=== PATIENT | female | born 1990 | race Caucasian/White ===

== ENCOUNTER 2023-02-18 14:11 | Emergency (ER) | payer OTHER, SELFPAY ==
--- NOTE | ~2023-02-18 | XR_ITS ---
EXAMINATION: XR forearm RT 2V DATE: 02/18/2023 15:13 INDICATION: Right forearm pain and swelling. Fall. TECHNIQUE: 2 views of right forearm were obtained. COMPARISON: None. FINDINGS: Bone alignment is normal. No fracture. Joint spaces are normal. No elbow joint effusion. IMPRESSION: 1. Normal right forearm. Reviewed, dictated and finalized at location A. IMPRESSION: 1. Normal right forearm.
[2023-02-18 14:18] VITALS: BP 131/83; PULSE 79; RESP 16; TEMP 36.6; O2SAT 100
--- NOTE | 2023-02-18 14:24 | ED.UPPEXIN ---
HPI - Extremity Injury (Upper) General Chief Complaint: Extremity Injury, Upper Stated Complaint: Rt Arm/Shoulder Pain Due to Fall Time Seen by Provider: 02/18/23 14:24 Source: patient Mode of arrival: ambulatory Limitations: no limitations History of Present Illness HPI narrative: 32-year-old female presents with complaint of right forearm pain with bruising and swelling. Patient reports that she tripped over 1 of her daughters toys on the floor and fell into entertainment system, hitting right forearm. Denies any head, no LOC. No other pain. Patient reports shooting pain up arm in to right shoulder with movement. Distal neurovascularly intact. All systems reviewed and negative except as noted above. Related Data Home Medications Medication Instructions Recorded Confirmed norethindrone 1 mg-ethinyl 1 tablet PO DAILY 02/18/23 02/18/23 estradiol 20 mcg (21)-iron 75 mg (7) tablet ([place] Fe 11/09 (28)) Allergies Allergy/AdvReac Type Severity Reaction Status Date / Time No Known Allergies Allergy Verified 02/18/23 14:30 Review of Systems Review of Systems: CONSTITUTIONAL: Denies fever, chills, or sweats. EYES: Denies visual changes, redness, or discharge. ENT: Denies rhinorrhea, congestion, sore throat, or otalgia. CARDIOVASCULAR: Denies chest pain, palpitations, or edema. RESPIRATORY: Denies cough or dyspnea. GASTROINTESTINAL: Denies abdominal pain, nausea, vomiting, or diarrhea. GENITOURINARY: Denies dysuria or hematuria. SKIN: Denies rash or itching. MUSCULOSKELETAL: Denies back pain, joint pain, or myalgia. Reports pain and bruising to right forearm. NEUROLOGIC: Denies headache, numbness, or weakness. PSYCHIATRIC: Denies anxiety or depression. All other systems reviewed are negative, except as documented in HPI. PMFSH Social History Social History Smoking status: Never smoker Alcohol intake: never Comments At time of signature, agree with nursing past medical, surgical, social and family history. There is no relevant family history pertinent to the presenting complaint. Exam Narrative: GENERAL: This is a well-nourished, well-developed patient, in no apparent distress. HEAD: normocephalic, atraumatic. EYES: PERRL. Sclera clear/white. Vision is grossly intact. EARS: External ears normal NOSE: External nose normal NECK: Neck supple, non-tender without lymphadenopathy, masses or thyromegaly. CARDIOVASCULAR: Regular rate and rhythm without murmurs, gallops, or rubs. RESPIRATORY: Clear to auscultation. Breath sounds equal bilaterally. No wheezes, rales, or rhonchi. SKIN: warm, Dry, intact with no suspicious lesions or rash, good texture and turgor. NEURO: awake, alert, and oriented to person, place and time. There were no obvious focal neurologic abnormalities. EXTREMITIES: No joint tenderness, effusion. Contusion to medial anterior aspect of right forearm. Tender on palpation. Range of motion intact to right elbow, right shoulder. Distal neurovascularly intact. Course Course Level of Care: Express Care Visit Vital Signs Vital signs: Vital Signs Temperature 36.6 C 02/18/23 14:18 Pulse Rate 79 02/18/23 14:18 Respiratory Rate 16 02/18/23 14:18 Blood Pressure 131/83 02/18/23 14:18 Pulse Oximetry 100 02/18/23 14:18 Oxygen Delivery Room Air 02/18/23 14:18 Temperature 36.6 C 02/18/23 14:18 Pulse Rate 79 02/18/23 14:18 Respiratory Rate 16 02/18/23 14:18 Blood Pressure 131/83 02/18/23 14:18 Pulse Oximetry 100 02/18/23 14:18 Oxygen Delivery Room Air 02/18/23 14:18 Review MDM - Extremity Injury (Upper) MDM Narrative Medical decision making narrative: Patient is aware of diagnosis, understands and agrees to treatment plan. Anticipatory guidance given. Patient agrees to follow-up as directed and is aware of reasons to seek care at the emergency department. Portions of this
== END 2023-02-18 15:25 | disposition home or self-care (01) ==
PROVIDERS: Emergency Provider Nurse Practitioner Family; PCP Emergency Medicine
DX: S50.11XA Contusion of right forearm, initial encounter (principal); W18.09XA Striking against other object with subsequent fall, initial encounter; F41.9 Anxiety disorder, unspecified; F32.A Depression, unspecified
CPT/HCPCS: 73090; 99213; G0463

== ENCOUNTER 2023-06-27 18:39 | Emergency (ER) | payer OTHER, SELFPAY ==
[2023-06-27 18:50] VITALS: BP 135/85; PULSE 83; RESP 18; TEMP 36.4; O2SAT 100
--- NOTE | 2023-06-27 19:01 | ED.BACK ---
HPI - Back Pain/Injury General Chief Complaint: Back Pain/Injury Stated Complaint: back pain Source: patient Mode of arrival: ambulatory Limitations: no limitations History of Present Illness HPI Narrative: 33 y/o female presented for c/o mid lower back pain radiating to left hip for about 2 days. States she has had pain to this site intermittently over the past few years after a . States she had significant pain last night and was unable to sleep. Used icyhot and Aleve without significant change. Denies injury. Denies numbness, tingling, weakness of the lower extremities, or change in gait, saddle paresthesia or loss of bowel or bladder. Related Data Home Medications Medication Instructions Recorded Confirmed norethindrone 1 mg-ethinyl 1 tablet PO DAILY 02/18/23 06/27/23 estradiol 20 mcg (21)-iron 75 mg (7) tablet ([place] Fe 11/09 (28)) Allergies Allergy/AdvReac Type Severity Reaction Status Date / Time No Known Allergies Allergy Verified 06/27/23 18:56 Review of Systems Review of Systems: CONSTITUTIONAL: Denies body aches, fever, chills EYES: Denies visual changes CARDIOVASCULAR: Denies chest pain, palpitations, or edema. RESPIRATORY: Denies cough or dyspnea. GASTROINTESTINAL: Denies abdominal pain, nausea, vomiting, or diarrhea. SKIN: Denies rash, itching, or wounds. MUSCULOSKELETAL: reports back pain NEUROLOGIC: Denies headache, numbness, tingling, or weakness. All systems reviewed & are unremarkable except as noted in HPI and below PMFSH Past Medical History Medical History (Updated 06/27/23 @ 19:26 by Florence Villavicencio APRN) Anxiety and depression RLS (restless legs syndrome) Social History Social History Smoking status: Never smoker Alcohol intake: never Lack of Transportation: No Lack of Food: Never True Current Housing: I Have Housing Concerned About Future Housing: No Difficulty Paying Gas/Electric Bills: No Difficulty Paying for Meds: No Currently Unemployed: No Education: Master's Degree or Higher Difficulty w/ Childcare or Family Care: No Comments At time of signature, I have reviewed and agree with nursing past medical, surgical, social and family history unless otherwise noted. Please see nursing chart for further information. There is no relevant family history pertinent to the presenting complaint Exam Narrative: GENERAL: Appears in pain; in no acute distress. HEAD: Normocephalic, atraumatic. EYES: conjunctivae clear NECK: Supple. full ROM CHEST: Speaks in full sentences. No respiratory distress. HEART: Regular rate and rhythm. Normal and equal peripheral pulses. MUSC: No Vertebral point tenderness. Paraspinal tenderness to L4-5 area, pain with palpation to left hip c/w radiculopathy; BLEs with normal strength and sensation, normal range of motion. No pain with movement. No open wounds, or obvious deformity; alignment normal, pulse palpable and equal bilaterally, skin warm, dry, pink. Capillary refill less than 3 seconds. Gait steady. SKIN: Warm, dry, no rash or bruising NEURO: Alert and oriented x3. Course Course Emergency Course: Patient is aware of diagnosis, understands and agrees to treatment plan. Anticipatory guidance given. Patient agrees to follow-up as directed and is aware of reasons to seek care at the emergency department. Portions of this record may have been created with voice recognition software Level of Care: Express Care Visit Vital Signs Vital signs: Vital Signs Temperature 97.6 F 06/27/23 18:50 Pulse Rate 83 06/27/23 18:50 Respiratory Rate 18 06/27/23 18:50 Blood Pressure 135/85 06/27/23 18:50 Pulse Oximetry 100 06/27/23 18:50 Oxygen Delivery Room Air 06/27/23 18:50 Temperature 97.6 F 06/27/23 18:50 Pulse Rate 83 06/27/23 18:50 Respiratory Rate 18 06/27/23 18:50 Blood Pressure 135/85 06/27/23 18:50 Pulse Oximetry
== END 2023-06-27 19:11 | disposition home or self-care (01) ==
PROVIDERS: Emergency Provider Nurse Practitioner Family; PCP Emergency Medicine
DX: M54.16 Radiculopathy, lumbar region (principal); G25.81 Restless legs syndrome
CPT/HCPCS: 99213; G0463

== ENCOUNTER 2023-10-31 10:54 | Outpatient (CLI) | payer OTHER, SELFPAY ==
--- NOTE | ~2023-10-31 | MMUS_ITS ---
EXAMINATION: MM diagnostic cira BI w jatin, US breast BI limited HISTORY: Mastodynia, possible left breast cyst, history of breast cancer in her mother at age 46 TECHNIQUE: Craniocaudal, mediolateral, and mediolateral oblique 3-D tomosynthesis images of the eduardo ts were performed and synthetic 2-D images were generated. CAD analysis was submitted and interpreted . High resolution limited bilateral breast ultrasound was performed. COMPARISON: None, baseline BREAST PARENCHYMAL COMPOSITION: There are scattered areas of fibroglandular density. FINDINGS: MAMMOGRAPHIC FINDINGS: No suspicious mass, calcification, or architectural distortion are identified in either breast to sug gest malignancy. No mammographic correlate is identified for the reported left breast pain or possibl e palpable left breast lump. An asymmetry in the far posterior third of the inner right breast on the mediolateral view disperses with spot compression. ULTRASOUND: There is no evidence of focal abnormal solid or cystic mass in the vicinity of the patient's reported left breast pain or left breast lump. No sonographic correlate is identified for the asymmetry quest ioned in the right breast. IMPRESSION: 1. No specific mammographic or sonographic correlate is identified for the patient's reported left br east pain or possible left breast lump. Further evaluation at this time should be based on clinical a ssessment. Continued follow-up physical examination is recommended. 2. Recommend routine screening mammography beginning at age 35 due to breast cancer in her mother at age 46. BI-RADS Category 1: Negative Reviewed, dictated and finalized at location A. ASSOCIATE IMPRESSION: 1. No specific mammographic or sonographic correlate is identified for the morteza ent's reported left breast pain or possible left breast lump. Further evaluatio n at this time should be based on clinical assessment. Continued follow-up phys ical examination is recommended. 2. Recommend routine screening mammography beginning at age 35 due to breast ca ncer in her mother at age 46. BI-RADS Category 1: Negative
== END 2023-10-31 10:55 | disposition home or self-care (01) ==
PROVIDERS: PCP Emergency Medicine; Visit Provider Obstetrics & Gynecology
DX: N60.02 Solitary cyst of left breast (principal)
CPT/HCPCS: 76642; 77062; 77066; G0279

== ENCOUNTER 2023-11-17 09:43 | Emergency (ER) | payer OTHER, SELFPAY ==
--- NOTE | 2023-11-17 09:50 | ED.URI ---
HPI - URI/Sore Throat General Chief Complaint: Upper Respiratory Infection Stated Complaint: sore throat Time Seen by Provider: 11/17/23 09:51 Source: patient Mode of arrival: ambulatory Limitations: no limitations History of Present Illness HPI Narrative: Mer is a 33-year-old female patient presenting to the clinic today with complaints of a sore throat x1 day. She reports no fever or chills. Does have some body aches that started this morning. MD elicited complaint: sore throat Related Data Home Medications Medication Instructions Recorded Confirmed norethindrone 1 mg-ethinyl 1 tablet PO DAILY 02/18/23 11/17/23 estradiol 20 mcg (21)-iron 75 mg (7) tablet ([place] Fe 11/09 ()) albuterol sulfate 90 mcg/actuation 1 puff inhalation PRN PRN 11/17/23 11/17/23 aerosol inhaler Shortness Of Breath Or Wheezing Allergies Allergy/AdvReac Type Severity Reaction Status Date / Time No Known Allergies Allergy Verified 11/17/23 09:49 Review of Systems Review of Systems: Pertinent positives per HPI. Patient denies any fever, chills, rash, headache, visual changes, dizziness, cough, shortness of breath, chest pain, palpitations, nausea, vomiting, diarrhea, constipation, abdominal pain, or any urinary issues. PMFSH Past Medical History Medical History Anxiety and depression RLS (restless legs syndrome) Social History Social History Smoking status: Never smoker Alcohol intake: never Lack of Transportation: No Lack of Food: Never True Current Housing: I Have Housing Concerned About Future Housing: No Difficulty Paying Gas/Electric Bills: No Difficulty Paying for Meds: No Currently Unemployed: No Education: Master's Degree or Higher Difficulty w/ Childcare or Family Care: No Comments At the time of my signature, I reviewed and agree with the nursing past medical, surgical, social, and family history. There is no relevant family history pertinent to the patient complaint. Exam Narrative: General: Well-developed, well nourished, in no apparent distress Head: Normocephalic, atraumatic Eyes: Pupils equally round and reactive to light bilaterally, EOM intact, sclera and conjunctive clear, no discharge, lids normal Ears: TMs intact and clear, ear canals clear, no drainage, grossly hearing normal. Nose: Nares patent, no discharge, no inflammation, no sinus tenderness. Mouth: Oral pharynx red without lesions or masses, good dentition, MMM. Neck: Supple, trachea midline, no enlargement of anterior or posterior cervical nodes, no thyroid masses or goiter palpable. Cardio: Regular rate and rhythm, s1 and s2 normal, no murmur appreciated. Resp: Clear to auscultation bilaterally, no rhonchi, rales, wheezing or rubs Course Course Emergency Course: Portions of this record may have been created with voice recognition software. Level of Care: Express Care Visit Vital Signs Vital signs: Vital signs reviewed MDM - URI/Sore Throat MDM Narrative Medical decision making narrative: At the time of visit patient is resting comfortably on the exam table. Patient appears to be nontoxic. Labs: Strep test positive in the clinic today. Plan: Will place patient on amoxicillin. Work note was given. Supportive measures were discussed with the patient and they voiced understanding discharge instructions and agrees to treatment plan. Return precautions reviewed Differential Diagnosis Differential diagnosis: Likely upper respiratory infection, otitis media, sinusitis, viral infection, bronchitis, influenza, pharyngitis and other (COVID) Discharge Plan Discharge Clinical Impression: Acute streptococcal pharyngitis Patient Disposition: Home, Self-Care Condition: Stable Instructions: Antibiotic Form, Strep Throat (ED) Additional Instructions: Take prescription me
[2023-11-17 10:01] VITALS: BP 121/78; PULSE 79; RESP 20; TEMP 36.5; O2SAT 99
== END 2023-11-17 10:08 | disposition home or self-care (01) ==
PROVIDERS: Emergency Provider Nurse Practitioner Family; PCP Emergency Medicine
DX: J02.0 Streptococcal pharyngitis (principal); F41.9 Anxiety disorder, unspecified; F32.A Depression, unspecified; G25.81 Restless legs syndrome
CPT/HCPCS: 87880; 99213; G0463

== ENCOUNTER 2024-03-15 10:41 | Emergency (ER) | payer OTHER, SELFPAY ==
[2024-03-15 10:48] VITALS: BP 115/70; PULSE 106; RESP 18; TEMP 36.3; O2SAT 98
[2024-03-15 10:49] VITALS: BP 115/70; PULSE 106; RESP 18; TEMP 36.3; O2SAT 98
--- NOTE | 2024-03-15 11:02 | ED.URI ---
HPI - URI/Sore Throat General Chief Complaint: Upper Respiratory Infection Stated Complaint: cough,fabricio Time Seen by Provider: 03/15/24 10:57 Source: patient and RN notes reviewed Mode of arrival: ambulatory Limitations: no limitations History of Present Illness HPI Narrative: Patient presents today with a 2 day history of nonproductive cough, fever up to 100.5, body aches, shortness of breath, and sore throat. States sore throat is only worse after coughing. She has been taking NyQuil and albuterol with some mild relief. History of asthma. History of tonsillectomy. Related Data Allergies Allergy/AdvReac Type Severity Reaction Status Date / Time No Known Allergies Allergy Verified 03/15/24 10:49 Review of Systems Review of Systems: CONSTITUTIONAL: Denies chills, or sweats.+ body aches, fever EYES: Denies visual changes, redness, or discharge. ENT: Denies rhinorrhea, congestion,or otalgia.+ strep throat CARDIOVASCULAR: Denies chest pain, palpitations, or edema. RESPIRATORY: + cough, shortness of breath GASTROINTESTINAL: Denies abdominal pain, nausea, vomiting, or diarrhea. GENITOURINARY: Denies dysuria or hematuria. SKIN: Denies rash, itching, or wounds. MUSCULOSKELETAL: Denies back pain, joint pain, or myalgia. NEUROLOGIC: Denies headache, numbness, tingling, or weakness. PSYCH: Denies depression or anxiety. FORMERLY [facility], 1928–1983 Past Medical History Medical History (Updated 03/15/24 @ 11:13 by Lenka Cheung, ALEX, ) Anxiety and depression Asthma RLS (restless legs syndrome) Social History Social History Smoking status: Never smoker Alcohol intake: never Lack of Transportation: No Lack of Food: Never True Current Housing: I Have Housing Concerned About Future Housing: No Difficulty Paying Gas/Electric Bills: No Difficulty Paying for Meds: No Currently Unemployed: No Education: Master's Degree or Higher Difficulty w/ Childcare or Family Care: No Comments At time of signature, I have reviewed and agree with nursing past medical, surgical, social and family history unless otherwise noted. Please see nursing chart for further information. There is no relevant family history pertinent to the presenting complaint Exam Narrative: GENERAL: Mildly ill-appearing, well-nourished, and in no acute distress. HEAD: Normocephalic, atraumatic. EYES: EOMI. No redness or drainage. Conjunctivae normal. ENT: Mucous membranes pink and moist. Nares clear. No rhinorrhea. TMs normal bilaterally. Throat normal. Uvula midline. NECK: Normal AROM. Supple. No lymphadenopathy. CHEST: No respiratory distress. Clear to auscultation. HEART: Regular rate and rhythm. No murmur appreciated. EXTREMITIES: Normal range of motion. No edema. SKIN: Warm, dry, no rash. Capillary refill normal. Normal skin turgor. NEURO: No focal deficits. Alert and oriented x3. Gait steady. PSYCH: Normal affect. No signs of depression or anxiety. Course Course Level of Care: Express Care Visit Vital Signs Vital signs: Vital Signs Temperature 97.3 F L 03/15/24 10:48 Pulse Rate 106 H 03/15/24 10:48 Respiratory Rate 18 03/15/24 10:48 Blood Pressure 115/70 03/15/24 10:48 Pulse Oximetry 98 03/15/24 10:48 Oxygen Delivery Room Air 03/15/24 10:48 Temperature 97.3 F L 03/15/24 10:49 Pulse Rate 106 H 03/15/24 10:49 Respiratory Rate 18 03/15/24 10:49 Blood Pressure 115/70 03/15/24 10:49 Pulse Oximetry 98 03/15/24 10:49 Oxygen Delivery Room Air 03/15/24 10:49 Reviewed MDM - URI/Sore Throat MDM Narrative Medical decision making narrative: Rapid strep negative. Culture pending. Patient declines testing for COVID and influenza. Symptoms likely viral in etiology. Discussed [id number] medication use and duration of illness. Prescription for prednisone sent to pharmacy for asthma symptoms. Anticipatory guidance given. D
== END 2024-03-15 11:22 | disposition home or self-care (01) ==
PROVIDERS: Emergency Provider Nurse Practitioner; PCP Emergency Medicine
DX: J06.9 Acute upper respiratory infection, unspecified (principal); J45.901 Unspecified asthma with (acute) exacerbation; G25.81 Restless legs syndrome
CPT/HCPCS: 87081; 87880; 99213; G0463